=== PATIENT | female | born 1945 | race Caucasian/White ===

== ENCOUNTER 2021-02-23 10:04 | Inpatient (IN) | payer MEDICARE ==
[~2021-02-23] VITALS: Ht 162.6 cm; Wt 57.6 kg
[2021-02-23] MEDS ORDERED: FERROUS SULFAT325 MG PO (10:11)
[2021-02-23] MEDS ORDERED: LOVENOX INJ100 MG/ML SC (10:11)
[2021-02-23] MEDS ORDERED: LIPITOR40 MG PO (10:12)
[2021-02-23] MEDS ORDERED: ZOLOFT25 MG PO (10:12)
[2021-02-23] MEDS ORDERED: VALIUM 2 MG TAB2 MG PO (10:13)
[2021-02-23] MEDS ORDERED: TOPROL XL25 MG PO (10:13)
[2021-02-23] MEDS ORDERED: MELATONIN5 MG PO (10:13)
[2021-02-23] MEDS ORDERED: FEXOFENADINE HC60 MG PO (10:14)
[2021-02-23] MEDS ORDERED: CALCIUM 600 +1 EAC3 PO (10:15)
[2021-02-23] MEDS ORDERED: POTASSIUM PO (10:15)
[2021-02-23] MEDS ORDERED: FLAGYL500 MG PO (10:17)
[2021-02-23 11:11] LABS: BASOPHILS 0.1 % (0-2); EOSINOPHILS 0.1 % (0-7); IMMATURE GRANULOCYTES 0.3 % (0-5); LYMPHOCYTE ABS# 1.28 10x3/uL (1.18-3.74); LYMPHOCYTES 11.9 % (15-50); MCH 29.1 pg (26.0-34.0); MCHC 32.5 g/dL (31.0-37.0); MCV 89.5 fL (80.0-100.0); MEAN PLATELET VOLUME 9.3 fL (7.4-10.4); MONOCYTES 9.1 % (2-11); NEUTROPHIL ABS# 8.49 10x3/uL (1.56-6.13); NEUTROPHILS 78.5 % (40-80); PLATELET COUNT 216 10x3/uL (130-400); RBC 4.47 10x6/uL (4.00-5.40); RDW 14.5 % (11.5-14.5); WBC 10.8 10x3/uL (4.8-10.8)
[2021-02-23 11:17] LABS: CALCIUM 8.9 mg/dL (8.5-10.1); CARBON DIOXIDE 23.7 mmol/L (21.0-32.0); CREATININE - SERUM 0.9 mg/dL (0.6-1.3); POTASSIUM - SERUM 3.7 mmol/L (3.5-5.1)
[2021-02-23 11:23] LABS: ALBUMIN 3.3 g/dL (3.4-5.0); BILIRUBIN - TOTAL 0.53 mg/dL (0.2-1.3); PROTEIN - SERUM 6.7 g/dL (6.4-8.2)
[2021-02-23 11:30] VITALS: BP 127/64
[2021-02-23 11:37] LABS: APTT 31.2 SECONDS (22.8-39.4); INR 1.09 (0.85-1.17); PROTIME 13.1 SECONDS (11.6-15.0)
--- NOTE | 2021-02-23 11:45 | NUR ---
DR DURANT AT BS
[2021-02-23 12:16] VITALS: BP 130/58
--- NOTE | 2021-02-23 12:48 | NUR ---
AMB TO BR. 50 ML WATERY/BLOODY STOOL
--- NOTE | 2021-02-23 13:15 | NUR ---
TRIED TO CALL REPORT AT THIS TIME, PRIMARY RN ON MED SURGE IS CLEANING UP A PT AT THIS TIME AND WILL CALL BACK ORAL.
[2021-02-23 14:00] VITALS: BP 132/60
--- NOTE | 2021-02-23 14:00 | NUR ---
REPORT TO NURSE LORENZO
[2021-02-23 14:22] VITALS: BP 129/60
[2021-02-23 14:51] VITALS: BP 129/60; BMI 21.8
[2021-02-23 15:12] LABS: HEMOGLOBIN 12.2 g/dL (12-16); MCH 29.4 pg (26.0-34.0); MCV 89.2 fL (80.0-100.0); MEAN PLATELET VOLUME 9.3 fL (7.4-10.4); RBC 4.15 10x6/uL (4.00-5.40); RDW 14.4 % (11.5-14.5); WBC 9.8 10x3/uL (4.8-10.8)
[2021-02-23 18:47] LABS: HEMATOCRIT 36.1 % (36.0-48.0); HEMOGLOBIN 11.8 g/dL (12-16); MCH 29.3 pg (26.0-34.0); MCHC 32.7 g/dL (31.0-37.0); MCV 89.6 fL (80.0-100.0); MEAN PLATELET VOLUME 9.5 fL (7.4-10.4); RBC 4.03 10x6/uL (4.00-5.40); RDW 14.5 % (11.5-14.5); WBC 8.4 10x3/uL (4.8-10.8)
--- NOTE | 2021-02-23 20:00 | NUR ---
RECEIVED REPORT, WILL ASSUME CARE OF PT, DENIES ANY NEEDS AT THIS TIME, BED IS LOW, SRX2, CALL LIGHT IN REACH, WILL CONTINUE PLAN OF CARE
[2021-02-23 20:29] VITALS: BP 122/66
[2021-02-24 00:46] VITALS: BP 114/55
--- NOTE | 2021-02-24 02:11 | NUR ---
I have reviewed this patient and I concur with the Shift Assessment completed by the Licensed Practical Nurse today this shift.
[2021-02-24 05:53] VITALS: BP 120/59
[2021-02-24 05:59] LABS: BASOPHILS 0.1 % (0-2); EOSINOPHILS 1.5 % (0-7); HEMATOCRIT 35.2 % (36.0-48.0); HEMOGLOBIN 11.3 g/dL (12-16); IMMATURE GRANULOCYTES 0.1 % (0-5); LYMPHOCYTE ABS# 1.49 10x3/uL (1.18-3.74); LYMPHOCYTES 22.3 % (15-50); MCH 28.8 pg (26.0-34.0); MCHC 32.1 g/dL (31.0-37.0); MCV 89.6 fL (80.0-100.0); MEAN PLATELET VOLUME 9.8 fL (7.4-10.4); MONOCYTES 11.2 % (2-11); NEUTROPHIL ABS# 4.31 10x3/uL (1.56-6.13); NEUTROPHILS 64.8 % (40-80); PLATELET COUNT 212 10x3/uL (130-400); RBC 3.93 10x6/uL (4.00-5.40); RDW 14.6 % (11.5-14.5); WBC 6.7 10x3/uL (4.8-10.8)
[2021-02-24 06:20] LABS: ALBUMIN 2.8 g/dL (3.4-5.0); ALKALINE PHOSPHATASE 47 U/L (30-120); ALT (SGPT) 60 U/L (10-68); BILIRUBIN - TOTAL 0.33 mg/dL (0.2-1.3); CALC OSMOLALITY 286 mosm/kg (275-300); CALCIUM 8.2 mg/dL (8.5-10.1); CARBON DIOXIDE 21.9 mmol/L (21.0-32.0); CHLORIDE - SERUM 113 mmol/L (98-107); CREATININE - SERUM 0.7 mg/dL (0.6-1.3); GLUCOSE 94 mg/dL (74-106); POTASSIUM - SERUM 3.7 mmol/L (3.5-5.1); PROTEIN - SERUM 5.5 g/dL (6.4-8.2); SODIUM 145 mmol/L (136-145); UREA NITROGEN 8 mg/dL (7-18); eGFR NON AFRICAN AMERICAN 87 mL/min (90-120)
[2021-02-24 06:38] LABS: APTT 33.2 SECONDS (22.8-39.4); INR 1.16 (0.85-1.17); PROTIME 13.7 SECONDS (11.6-15.0)
--- NOTE | 2021-02-24 07:34 | NUR ---
INITIAL ROUNDS- PT RESTING COMFORTABLY IN BED. PT A/O X4, RESP EVEN AND NONLABORED ON RA. LT AC INFUSING NS AT 100CC/HR. SR-68 ON TELE. PT DENIES ANY NEEDS AT THIS TIME. CALL LIGHT IN REACH, WILL CONTINUE PLAN OF CARE.
[2021-02-24 08:20] VITALS: BP 135/68
--- NOTE | 2021-02-24 08:33 | NUR ---
WENT TO GIVE PT HER AM MEDICATIONS, AND PT STATES THAT SHE TAKES ZOLOFT AND METOPROLOL AT NIGHT, WILL HAVE IT CHANGED IN EMAR.
--- NOTE | 2021-02-24 11:46 | NUR ---
BLOOD SUGAR OF 104, NO COVERAGE NEEDED PER S/S.
[2021-02-24 12:21] VITALS: Ht 162.6 cm; Wt 57.6 kg
[2021-02-24 12:32] VITALS: BP 129/58
[2021-02-24 15:50] VITALS: BP 116/59
--- NOTE | 2021-02-24 16:55 | NUR ---
BLOOD SUGAR OF 96, NO COVERAGE NEEDED PER S/S. PT RESTING COMFORTABLY IN BED, AT BEDSIDE, NAD NOTED, CALL LIGHT IN REACH.
--- NOTE | 2021-02-24 18:58 | NUR ---
PT AWAKE ALERT LYING IN BED WATCHING TV, DENIES ANY NEEDS WILL CONTINUE TO MONITOR
[2021-02-24 20:30] VITALS: BP 115/54
[2021-02-25 01:57] VITALS: BP 132/68
[2021-02-25 06:14] VITALS: BP 149/55
--- NOTE | 2021-02-25 07:00 | NUR ---
RECEIVED REPORT. ASSUMED CARE OF PATIENT. BEDSIDE SHIFT REPORT COMPLETE. WHITE BOARD UPDATED. PATIENT AWAKE,ALERT/ORIENTED. CALL LIGHT WITHIN REACH. SCDS PATENT TO BLE. DENIES NEEDS AT THIS TIME. NO DISTRESS.
[2021-02-25 07:26] LABS: BASOPHILS 0.2 % (0-2); EOSINOPHILS 3.6 % (0-7); HEMATOCRIT 34.8 % (36.0-48.0); HEMOGLOBIN 11.2 g/dL (12-16); IMMATURE GRANULOCYTES 0.2 % (0-5); LYMPHOCYTES 20.8 % (15-50); MCH 28.8 pg (26.0-34.0); MCHC 32.2 g/dL (31.0-37.0); MCV 89.5 fL (80.0-100.0); MONOCYTES 10.9 % (2-11); NEUTROPHILS 64.3 % (40-80); PLATELET COUNT 220 10x3/uL (130-400); RBC 3.89 10x6/uL (4.00-5.40); RDW 14.4 % (11.5-14.5); WBC 5.8 10x3/uL (4.8-10.8)
[2021-02-25 07:34] LABS: ALBUMIN 2.8 g/dL (3.4-5.0); ALKALINE PHOSPHATASE 46 U/L (30-120); ALT (SGPT) 49 U/L (10-68); BILIRUBIN - TOTAL 0.22 mg/dL (0.2-1.3); CALC OSMOLALITY 284 mosm/kg (275-300); CALCIUM 8.4 mg/dL (8.5-10.1); CARBON DIOXIDE 20.5 mmol/L (21.0-32.0); CHLORIDE - SERUM 112 mmol/L (98-107); CREATININE - SERUM 0.7 mg/dL (0.6-1.3); GLUCOSE 97 mg/dL (74-106); MAGNESIUM - SERUM 1.9 mg/dL (1.8-2.4); POTASSIUM - SERUM 3.5 mmol/L (3.5-5.1); PROTEIN - SERUM 5.6 g/dL (6.4-8.2); SODIUM 144 mmol/L (136-145); UREA NITROGEN 7 mg/dL (7-18); eGFR NON AFRICAN AMERICAN 87 mL/min (90-120)
--- NOTE | 2021-02-25 08:16 | NUR ---
22 GAUGE IV PLACED TO RIGHT FOREARM X 1 STICK. GOOD BLOOD RETURN, EASY FLUSH. PATIENT TOLERATED IV PLACEMENT WELL. NO DISTRESS.
[2021-02-25 08:26] VITALS: BP 143/70
--- NOTE | 2021-02-25 11:38 | NUR ---
Patient refused FSBS at this time. no distress. complaints of slight neck pain, tylenol administered as ordered.
--- NOTE | 2021-02-25 12:23 | NUR ---
Lovenox injections initiated at this time. no distress.
[2021-02-25 13:21] VITALS: BP 151/81
--- NOTE | 2021-02-25 14:55 | NUR ---
INCENTIVE SPIROMETRY ENCOURAGED. RESTING IN BED, NO DISTRESS. CALL LIGHT WITHIN REACH. IV FLUIDS INFUSING ORDERED.
[2021-02-25 16:16] VITALS: BP 137/70
--- NOTE | 2021-02-25 16:19 | NUR ---
refused FSBS at this time. no distress.
[2021-02-25 20:00] VITALS: BP 119/66
--- NOTE | 2021-02-25 22:21 | NUR ---
INITIALROUNDS COMPLETED AT 1915 H RS. PTDENIED ANY DISCOMFORT. ASSESSMENT COMPLETED AT 2000HRS. VSS. ALERT AND OREINTED TO PERSON, PLACE AND TIME. GRACIA. IV TO R WRIST WITH NS AT 100CC/HR. IV PATENT. SR PER CM HR 72. LUNGS ESSENTIALLY CTA. GRACIA. PALPABLE PERIPHERAL PULSES. SCD'S IN USE. NO BREAKDOWN NOTED. PM MEDS GIVEN. PT CURRENTLY WATCHING TV. SR UP X1, CALL LIGHT WITHIN REACH.
--- NOTE | 2021-02-26 00:03 | NUR ---
PT RESTING WITH EYES CLOSED. RESP EVEN AND REGULAR. SR UP X1,CALL LIGHT WITHIN REACH.
--- NOTE | 2021-02-26 02:58 | NUR ---
PT RESTING WITH EYES CLOSED. RESP EVEN AND REGULAR. CALL LIGHT WITHIN REACH.
[2021-02-26 04:00] VITALS: BP 143/77
--- NOTE | 2021-02-26 04:17 | NUR ---
PT HAD BM EARLIER IN SHIFT. NO BLOOD NOTED. DENIES ANY DISOCMFORT. CALL LIGHT WITHIN REACH.
--- NOTE | 2021-02-26 06:27 | NUR ---
VSS THROUGHOUT NIGHT. PT DENIED ANY DISCOMFORT. NEEDS MET;WILL CONTINUE TO MONITOR.
--- NOTE | 2021-02-26 07:08 | NUR ---
RECEIVED REPORT. ASSUMED CARE OF PATIENT. CALL LIGHT WITHIN REACH. BEDSIDE SHIFT REPORT COMPLETE. WHITE BOARD UPDATED. PATIENT SITTING UP IN BED. DENIES NEEDS. NO DISTRESS.
[2021-02-26 07:10] LABS: BASOPHILS 0.4 % (0-2); HEMATOCRIT 35.8 % (36.0-48.0); HEMOGLOBIN 11.5 g/dL (12-16); LYMPHOCYTE ABS# 1.64 10x3/uL (1.18-3.74); LYMPHOCYTES 31.4 % (15-50); MCH 28.5 pg (26.0-34.0); MCHC 32.1 g/dL (31.0-37.0); MCV 88.8 fL (80.0-100.0); MONOCYTES 11.5 % (2-11); NEUTROPHIL ABS# 2.75 10x3/uL (1.56-6.13); NEUTROPHILS 52.7 % (40-80); PLATELET COUNT 255 10x3/uL (130-400); RBC 4.03 10x6/uL (4.00-5.40); RDW 14.3 % (11.5-14.5); WBC 5.2 10x3/uL (4.8-10.8)
[2021-02-26 07:48] LABS: ALBUMIN 2.9 g/dL (3.4-5.0); ALKALINE PHOSPHATASE 48 U/L (30-120); ALT (SGPT) 43 U/L (10-68); BILIRUBIN - TOTAL 0.17 mg/dL (0.2-1.3); CALC OSMOLALITY 280 mosm/kg (275-300); CALCIUM 8.5 mg/dL (8.5-10.1); CARBON DIOXIDE 22.3 mmol/L (21.0-32.0); CHLORIDE - SERUM 110 mmol/L (98-107); CREATININE - SERUM 0.6 mg/dL (0.6-1.3); GLUCOSE 97 mg/dL (74-106); MAGNESIUM - SERUM 1.8 mg/dL (1.8-2.4); POTASSIUM - SERUM 3.2 mmol/L (3.5-5.1); PROTEIN - SERUM 5.7 g/dL (6.4-8.2); SODIUM 142 mmol/L (136-145); UREA NITROGEN 6 mg/dL (7-18); eGFR NON AFRICAN AMERICAN > 90 mL/min (90-120)
[2021-02-26 08:14] VITALS: BP 143/72
--- NOTE | 2021-02-26 11:15 | NUR ---
PATIENT REFUSED FSBS AT THIS TIME. NO DISTRESS.
[2021-02-26] MEDS ORDERED: LOVENOX60 MG/0.6 SC (11:32)
[2021-02-26] MEDS ORDERED: FLORAJEN3 CAPS460 MG PO (11:33)
--- NOTE | 2021-02-26 12:05 | MORECARE ---
CASE MANAGEMENT DISCHARGE SUMMARY PATIENT: RAYSA CERRATO UNIT: [id number] ADM DATE: 02/23/21 AGE: 75 : 46 SEX: F ROOM/BED: D.1783 AUTHOR: JOVANNA,DOC PHYSICIAN: REFERRING PHYSICIAN: JAYLIN VILLALTA MD DATE OF SERVICE: 02/26/21 Case Management Discharge Planning Summary CT Patient Name: RAYSA CERRATO Attending MD : MAYRA VILLALTA, Medical Record: [id number] Encounter : [id number] Facility : [address] [place] [address] Medical Admission Date : 112:21 Center Discharge Date : [address] [place] [address] Date of : DC Plan ID : [id number] Age/Sex/Martia : 75/ F/M Printed on : 02/26/21 12:04 CT DCP Review Details Anticipated D/C: 02/26/2021 Expected LOS : 3 Case Status : INITIATED - Initial Reviewe: [id number] - Alicia Keene Initial Review: 02/26/2021 Planned Disposi: 01 - Home or Self Care (Routine Discharge) Final Discharge: - Final Reviewer : MARIA ELENA : Alicia Keene Final Review : DCP Focus Questions & Answers DCP Screen High Risk Factors: None Walking limitation: Patient stated self rated No walking limitation present? Age: 65 - 79 Prior living environment: Lives with others Disability ranking: Grade 1: No significant disability DCP Evaluation Patient's ability to cope with chronic illness d. No chronic illness Patient and/or caregiver agree upon recommended Yes discharge plan? Patient's current cognitive status: *Oriented to person, place, situation, time and present Patient gives permission to discuss discharge Bill Jing - spouse - [phone] plans with: (name, relationship and number) Does the patient have the ability to pay for or Yes attain post discharge needs / services? Functional screen assessment: No issues identified Physical Status: Independent with ADL's Equipment needed for post hospitalization: None Is there a likelihood that the patient will No require additional services to return to the preadmission environment? Living Arrangements: Home with Spouse/Significant Other Results of this evaluation have been discussed Spouse with: Results of this evaluation have been discussed Patient with: Patient with capacity for self-care or can be Yes cared for in same environment as prior to hospitalization? Baseline cognitive status: *Oriented to person, place, situation, time and present Physical environment modification needed / No anticipated for discharge: Preadmission facility can/cannot provide post Can - at same level of care as preadmission hospital level of care needs: Pharmacy name(s): [facility] for immediate meds Does Patient have transportation to get home and Yes to follow-up medical appointments when discharged from the hospital? Would patient like to participate in any Care Not applicable Coordination programs (if applicable): Comments: Spouse to transport home Equipment in use: CPAP Other Equipment comments: [facility] [place] ([facility]) Mental health screen: No mental health history Resources / Services in place: None DCP Re-evaluation Would patient like to participate in any Care Not applicable Coordination programs (if applicable): [facility] RAYSA CERRATO MR#: [id number] /Age/Sex/Zmqmxo54-Oyb-62 /75/F /M Attending Physician Name: PAWAN [id number] Patient Account:[id number] [facility] Page -1 of 1 All edits/amendments must be made on the electronic document DICTATION DATE: 02/26/211203 GERONTOLOGY AIDE: GUERO 02/26/211203 RPT#: [id number] DC DATE: STATUS: ADM IN [facility] [address] [place] [address] END OF REPORT
--- NOTE | 2021-02-26 12:38 | MORECARE ---
CASE MANAGEMENT DISCHARGE SUMMARY PATIENT: RAYSA CERRATO UNIT: [id number] ADM DATE: 02/23/21 AGE: 75 : 46 SEX: F ROOM/BED: D.3614 AUTHOR: JOVANNA,DOC PHYSICIAN: REFERRING PHYSICIAN: JAYLIN VILLALTA MD DATE OF SERVICE: 02/26/21 Case Management Discharge Planning Summary CT Patient Name: RAYSA CERRATO Attending MD : MAYRA VILLALTA, Medical Record: [id number] Encounter : [id number] Facility : [address] [place] [address] Medical Admission Date : 112:21 Center Discharge Date : [address] [place] [address] Date of : DC Plan ID : [id number] Age/Sex/Martia : 75/ F/M Printed on : 02/26/21 12:37 CT DCP Review Details Anticipated D/C: 02/26/2021 Expected LOS : 3 Case Status : INITIATED - Initial Reviewe: [id number] - Alicia Keene Initial Review: 02/26/2021 Planned Disposi: 01 - Home or Self Care (Routine Discharge) Final Discharge: - Final Reviewer : MARIA ELENA : Alicia Keene Final Review : Comments CT Entered Date Type Reviewer 02/26/21 12:04 CT Discharge Planning Alicia Keene Comment DC PLAN: Home with spouse ANTICIPATED DC NEEDS: No needs CM met with patient to complete initial dc planning assessment. CM educated patient on the CM role and verbal consent given by patient to complete assessment. CM verified patient's address, phone number, and emergency contact phone numbers. Patient lives at home with her spouse. At discharge patient plans to return and feels this is a safe discharge. CM discussed availability of home health, rehab services, and medical equipment. Patient denied known discharge needs at this time. Transportation provider at discharge will be her spouse. States her administers Lovenox injections to her, they are both aware it has been decreased to 50mg. States her PCP is Dr. Rasheed. She has 3 steps to enter her one level home. CM will continue to follow and will assist as needed with dc plans/needs. DCP Focus Questions & Answers DCP Screen High Risk Factors: None Walking limitation: Patient stated self rated No walking limitation present? Age: 65 - 79 Prior living environment: Lives with others Disability ranking: Grade 1: No significant disability DCP Evaluation Patient's ability to cope with chronic illness d. No chronic illness Patient and/or caregiver agree upon recommended Yes discharge plan? Patient's current cognitive status: *Oriented to person, place, situation, time and present Patient gives permission to discuss discharge Catracho larsen - [phone] plans with: (name, relationship and number) Does the patient have the ability to pay for or Yes attain post discharge needs / services? Functional screen assessment: No issues identified Physical Status: Independent with ADL's Equipment needed for post hospitalization: None Is there a likelihood that the patient will No require additional services to return to the preadmission environment? Living Arrangements: Home with Spouse/Significant Other Results of this evaluation have been discussed Spouse with: Results of this evaluation have been discussed Patient with: Patient with capacity for self-care or can be Yes cared for in same environment as prior to hospitalization? Baseline cognitive status: *Oriented to person, place, situation, time and present Physical environment modification needed / No anticipated for discharge: Preadmission facility can/cannot provide post Can - at same level of care as preadmission hospital level of care needs: Pharmacy name(s): [facility] for immediate meds Does Patient have transportation to get home and Yes to follow-up medical appointments when discharged from the hospital? Would patient like to participate in any Care Not applicable Coordination programs (if applicable): Comments: Spouse to transport home Equipment in use: CPAP Other Equipment comments: [facility] [place] ([facility] [employer]) Mental health screen: No mental health history Resources / Services in place: None DCP Re-evaluation Would patient like to participate in any Care Not applicable Coordination programs (if applicable): [facility] RAYSA CERRATO MR#: [id number] /Age/Sex/Qdqwxy16-Eph-23 //F /M Attending Physician Name: PAWAN [id number] Patient Account:[id number] [facility] Page -1 of 1 All edits/amendments must be made on the electronic document DICTATION DATE: 02/26/217 AREA PLANT MANAGER: GUERO 02/26/21 1237 RPT#: [id number] DC DATE: STATUS: ADM IN [facility] [address] [place] [address] END OF REPORT
[2021-02-26 12:58] VITALS: BP 133/77
--- NOTE | 2021-02-26 13:25 | NUR ---
DISCHARGE INSTRUCTIONS PROVIDED TO PATIENT AND FAMILY. PATIENT AND FAMIILY VERBALIZED UNDERSTANDING OF ALL INSTRUCTIONS PROVIDED. 22 GAUGE IV REMOVED FROM RIGHT FOREARM. CATHETER TIP INTACT. NO BLEEDING FROM SITE. 2X2 APPLIED AND SECURED WITH BANDAID. PARKING METER COLLECTOR REMOVED.
--- NOTE | 2021-02-26 15:56 | MORECARE ---
CASE MANAGEMENT DISCHARGE SUMMARY PATIENT: RAYSA CH UNIT: [id number] ADM DATE: 02/23/21 AGE: 75 : 46 SEX: F ROOM/BED: D.0789 AUTHOR: JOVANNA,DOC PHYSICIAN: REFERRING PHYSICIAN: JAYLIN VILLALTA MD DATE OF SERVICE: 02/26/21 Case Management Discharge Planning Summary CT Patient Name: RAYSA CH Attending MD : MAYRA VILLALTA, Medical Record: [id number] Encounter : [id number] Facility : [address] [place] [address] Medical Admission Date : 112:21 Center Discharge Date : 02/26/[address] [place] [address] Date of : DC Plan ID : [id number] Age/Sex/Martia : 75/ F/M Printed on : 02/26/21 15:55 CT DCP Review Details Anticipated D/C: 02/26/2021 Expected LOS : 3 Case Status : INITIATED - Initial Reviewe: [id number] - Alicia Keene Initial Review: 02/26/2021 Planned Disposi: 01 - Home or Self Care (Routine Discharge) Final Discharge: - Final Reviewer : [id number] : Alicia Keene Final Review : Comments CT Entered Date Type Reviewer 02/26/21 12:04 CT Discharge Planning Alicia Keene Comment DC PLAN: Home with spouse ANTICIPATED DC NEEDS: No needs CM met with patient to complete initial dc planning assessment. CM educated patient on the CM role and verbal consent given by patient to complete assessment. CM verified patient's address, phone number, and emergency contact phone numbers. Patient lives at home with her spouse. At discharge patient plans to return and feels this is a safe discharge. CM discussed availability of home health, rehab services, and medical equipment. Patient denied known discharge needs at this time. Transportation provider at discharge will be her spouse. States her administers Lovenox injections to her, they are both aware it has been decreased to 50mg. States her PCP is Dr. Rasheed. She has 3 steps to enter her one level home. CM will continue to follow and will assist as needed with dc plans/needs. DCP Focus Questions & Answers DCP Screen High Risk Factors: None Walking limitation: Patient stated self rated No walking limitation present? Age: 65 - 79 Prior living environment: Lives with others Disability ranking: Grade 1: No significant disability DCP Evaluation Patient's ability to cope with chronic illness d. No chronic illness Patient and/or caregiver agree upon recommended Yes discharge plan? Patient's current cognitive status: *Oriented to person, place, situation, time and present Patient gives permission to discuss discharge Catracho Ch - suzie - [phone] plans with: (name, relationship and number) Does the patient have the ability to pay for or Yes attain post discharge needs / services? Functional screen assessment: No issues identified Physical Status: Independent with ADL's Equipment needed for post hospitalization: None Is there a likelihood that the patient will No require additional services to return to the preadmission environment? Living Arrangements: Home with Spouse/Significant Other Results of this evaluation have been discussed Spouse with: Results of this evaluation have been discussed Patient with: Patient with capacity for self-care or can be Yes cared for in same environment as prior to hospitalization? Baseline cognitive status: *Oriented to person, place, situation, time and present Physical environment modification needed / No anticipated for discharge: Preadmission facility can/cannot provide post Can - at same level of care as preadmission hospital level of care needs: Pharmacy name(s): [facility] for immediate meds Does Patient have transportation to get home and Yes to follow-up medical appointments when discharged from the hospital? Would patient like to participate in any Care Not applicable Coordination programs (if applicable): Comments: Spouse to transport home Equipment in use: CPAP Other Equipment comments: [facility] [place] ([facility]) Mental health screen: No mental health history Resources / Services in place: None DCP Re-evaluation Would patient like to participate in any Care Not applicable Coordination programs (if applicable): [facility] RAYSA CH MR#: [id number] /Age/Sex/Ygkfyl47-Bfb-52 /75/F /M Attending Physician Name: PAWAN [id number] Patient Account:[id number] [facility] Page -1 of 1 All edits/amendments must be made on the electronic document DICTATION DATE: 02/26/211554 PROPOSAL ENGINEER: GUERO 02/26/21 155 RPT#: [id number] DC DATE:02/26/21 STATUS: DIS IN [place] [id number] [place] [address] END OF REPORT
--- NOTE | 2021-03-01 04:18 | MORECARE ---
CASE MANAGEMENT DISCHARGE SUMMARY PATIENT: RAYSA CH UNIT: [id number] ADM DATE: 02/23/21 AGE: 75 : 46 SEX: F ROOM/BED: D.9274 AUTHOR: JOVANNA,DOC PHYSICIAN: REFERRING PHYSICIAN: JAYLIN VILLALTA MD DATE OF SERVICE: 03/01/21 Case Management Discharge Planning Summary CT Patient Name: RAYSA CH Attending MD : MAYRA VILLALTA, Medical Record: [id number] Encounter : [id number] Facility : [address] [place] [address] Medical Admission Date : 112:21 Center Discharge Date : 02/26/[address] [place] [address] Date of : DC Plan ID : [id number] Age/Sex/Martia : 75/ F/M Printed on : 03/01/21 4:17 CT DCP Review Details Anticipated D/C: 02/26/2021 Expected LOS : 3 Case Status : INITIATED - Initial Reviewe: [id number] - Alicia Keene Initial Review: 02/26/2021 Planned Disposi: 01 - Home or Self Care (Routine Discharge) Final Discharge: - Final Reviewer : [id number] : Alicia Keene Final Review : Comments CT Entered Date Type Reviewer 02/26/21 12:04 CT Discharge Planning Alicia Keene Comment DC PLAN: Home with spouse ANTICIPATED DC NEEDS: No needs CM met with patient to complete initial dc planning assessment. CM educated patient on the CM role and verbal consent given by patient to complete assessment. CM verified patient's address, phone number, and emergency contact phone numbers. Patient lives at home with her spouse. At discharge patient plans to return and feels this is a safe discharge. CM discussed availability of home health, rehab services, and medical equipment. Patient denied known discharge needs at this time. Transportation provider at discharge will be her spouse. States her administers Lovenox injections to her, they are both aware it has been decreased to 50mg. States her PCP is Dr. Rasheed. She has 3 steps to enter her one level home. CM will continue to follow and will assist as needed with dc plans/needs. DCP Focus Questions & Answers DCP Screen High Risk Factors: None Walking limitation: Patient stated self rated No walking limitation present? Age: 65 - 80 Prior living environment: Lives with others Disability ranking: Grade 1: No significant disability DCP Evaluation Patient gives permission to discuss discharge [place] Ch - spouse - [phone] plans with: (name, relationship and number) Patient's current cognitive status: *Oriented to person, place, situation, time and present Patient and/or caregiver agree upon recommended Yes discharge plan? Patient's ability to cope with chronic illness d. No chronic illness Physical Status: Independent with ADL's Functional screen assessment: No issues identified Does the patient have the ability to pay for or Yes attain post discharge needs / services? Living Arrangements: Home with Spouse/Significant Other Is there a likelihood that the patient will No require additional services to return to the preadmission environment? Equipment needed for post hospitalization: None Baseline cognitive status: *Oriented to person, place, situation, time and present Patient with capacity for self-care or can be Yes cared for in same environment as prior to hospitalization? Results of this evaluation have been discussed Patient with: Results of this evaluation have been discussed Spouse with: Preadmission facility can/cannot provide post Can - at same level of care as preadmission hospital level of care needs: Physical environment modification needed / No anticipated for discharge: Pharmacy name(s): [email or web address] for immediate meds Does Patient have transportation to get home and Yes to follow-up medical appointments when discharged from the hospital? Comments: Spouse to transport home Would patient like to participate in any Care Not applicable Coordination programs (if applicable): Equipment in use: CPAP Other Equipment comments: [facility] [place] [facility] Mental health screen: No mental health history Resources / Services in place: None DCP Re-evaluation Would patient like to participate in any Care Not applicable Coordination programs (if applicable): [facility] RAYSA CH MR#: [id number] /Age/Sex/Mcmwnk62-Rxs-96 /75/F /M Attending Physician Name: PAWAN [id number] Patient Account:[id number] [facility] Page -1 of 1 All edits/amendments must be made on the electronic document DICTATION DATE: 03/01/21416 BUFFER MACHINE: GUERO 03/01/21416 RPT#: [id number] DC DATE:02/26/21 STATUS: DIS IN [place] [id number] [place] [address] END OF REPORT
== END 2021-02-26 13:45 | disposition home or self-care (01) | DRG 378 ==
LOC: D.ER 10:04 → D.M2 12:21 → D.ER 14:08 → D.M2 02-26 13:45
PROVIDERS: Emergency Medicine; ADMIT Family Medicine; ATTEND Family Medicine
DX: K92.2 Gastrointestinal hemorrhage, unspecified (principal); D62 Acute posthemorrhagic anemia; I48.91 Unspecified atrial fibrillation; Z79.01 Long term (current) use of anticoagulants; Z86.73 Personal history of transient ischemic attack (TIA), and cerebral infarction without residual deficits; Z86.010 Personal history of colon polyps

== ENCOUNTER 2021-02-28 20:33 | Inpatient (IN) | payer MEDICARE ==
[~2021-02-28] VITALS: Ht 162.6 cm; Wt 58.6 kg
--- NOTE | ~2021-02-28 | OP ---
PATIENT NAME: RAYSA CERARTO MEDICAL RECORD: [id number] :47 LOCATION:[facility].CV07 ADMISSION DATE:02/28/21 SURGEON: RONEN LOCK MD DATE OF OPERATION: 03/02/2021 PROCEDURE: Colonoscopy. PREOPERATIVE DIAGNOSIS: Lower gastrointestinal bleed. INDICATIONS: Ms. Cerrato is a pleasant female who had a colonoscopy done last week as an outpatient. At that time, she had multiple polyps removed by Dr. Christensen and a series of endoclips were placed because these were very large polyps and there were multiple polyps. The patient was restarted on her anticoagulation and had presented last weekend with bleeding. She was treated conservatively and went home. However, she re-presented to the Emergency Room with further rectal bleeding and a colonoscopy is being done today to evaluate. The colonoscope was inserted through the rectum and advanced to the cecum, identified by the ileocecal valve and the appendiceal orifice. There were multiple post-polypectomy sites visualized. At 75 cm from the rectum in the proximal ascending colon, a post-polypectomy site was visualized and one endoclip was placed. At 64 cm from the rectum, two adjacent polypectomy sites were visualized and 3 additional endoclips were placed. Of note, there was one endoclip already present from her colonoscopy last week. At 58 cm from the rectum, there was another post-polypectomy site and one endoclip was placed. At 44 cm from the rectum, there was an additional post-polypectomy site and one endoclip was placed. All of these polypectomy sites were ulcerated with mild surrounding erythema. It was unclear which one had bled so empiric treatment with endoclip placement was performed, especially since the patient will likely need to resume her anticoagulation. Upon examining the rectum, there was a large 1 cm post-polypectomy site with significant erythema, edema, and stigmata of hemorrhage. Most likely this was the definitive source of her ongoing hematochezia and bright red blood. This large post-polypectomy site was washed carefully and 2 endoclips were placed successfully. There was no bleeding visualized and the patient tolerated the procedure well. There were also a few scattered sigmoid diverticula and a few other small polyps that were not removed during previous colonoscopy likely secondary to the larger polyps and need for multiple polypectomy removal. FINAL DIAGNOSES: Multiple post-polypectomy ulcerated lesions. Multiple additional endoclips placed. Next, distal rectal large post-polypectomy site with very significant stigmata of recent hemorrhage. Two endoclips placed successfully. The patient tolerated the procedure well. I did talk in lengthy detail. PLAN: Continue supportive treatment. I will start full liquids on this patient. I did also consult Cardiology for assistance with management of her anticoagulation given her ongoing post-polypectomy bleeding after anticoagulation had been started. Continue to monitor H and H. Also, I had a lengthy discussion with her regarding her fragile situation. However, at this time, she is stable and hopefully given the multiple additional endoclips placed as well as the 2 endoclips placed at the large rectal post-polypectomy site with stigmata of hemorrhage. Hopefully, she will stop bleeding at this time. Again, this is situation to be carefully balanced given her need for anticoagulation. More recommendations to follow. We will continue to watch her closely. OPERATIVE REPORT [id number] RAYSA CERRATO TRANSINT:[id number] Voice Confirmation ID: [id number] DOCUMENT ID: [id number] RONEN LOCK MD CC: [id number] DICTATION DATE: 03/02/21 1310 BUSINESS ACCOUNT MANAGER: 03/02/[address] [facility] [address] [place] [id number]
--- NOTE | ~2021-02-28 | CN ---
PATIENT NAME:RAYSA CERRATO MEDICAL RECORD: [id number] : 47 LOCATION:[facility] ADMIT DATE: 02/28/21 ACCOUNT: [id number] CONSULTING PHYSICIAN: ROSHAN PARTIDA MD REFERRING PHYSICIAN: BA GODOY MD DATE OF CONSULTATION: 03/02/2021 HISTORY OF PRESENT ILLNESS: A 75-year-old female with cardiovascular history. Has a history of atrial fibrillation, status post CVA with really minimal residual. She was initially admitted previous admission with GI bleed. She had a colonoscopy 02/23, switched to Lovenox preprocedure, with multiple polypectomies. She has had recurrent GI bleeding. We are asked to assist in anticoagulation management. PAST MEDICAL HISTORY: Includes; 1. History of cerebrovascular disease status post CVA. 2. Hypertension. 3. Hyperlipidemia. ALLERGIES: SULFA, MEFOXIN, ZETIA. MEDICATIONS: Include Estella 180 mg p.o. daily, Lovenox pre- and post-procedure, iron supplementation, atorvastatin 40 mg p.o. daily, cholestyramine 4 grams b.i.d., metoprolol 25 daily, aspirin 81 daily, Zoloft 25 daily. SOCIAL HISTORY: Nonsmoker, nondrinker. Easily takes care of all her ADLs. Does try to walk on a regular basis. REVIEW OF SYSTEMS: The patient reports easy bruising but reports no swollen glands. The patient reports no fever, no night sweats, no significant weight gain, no significant weight loss. No significant exercise tolerance. The patient reports no dry eyes, no irritation, no vision change. Patient reports no difficulty hearing and no ear pain. Patient reports no frequent nose bleeds or nose and sinus problems. Patient reports on arm pain on exertion. No shortness of breath while lying down. No history of heart murmur. Patient reports no cough, no wheezing or coughing up blood. Patient reports no abdominal pain, no vomiting. Normal appetite. No diarrhea and not vomiting blood. No nausea and no constipation. Patient reports no incontinence. No difficulty urinating. No hematuria. No increased frequency. Patient reports no muscle aches. No weakness, no arthralgias, no back pain. No swelling of the extremities. Patient reports no abnormal mole, no jaundice, no rashes. Reports no loss of consciousness. No weakness and no numbness. No seizures, dizziness, or headaches. The patient reports no depression, no sleep disturbance, feeling safe in a relationship and no alcohol abuse. Patient reports on fatigue. Reports no runny nose or sinus pressure. No itching, no hives, and no frequent sneezing. PHYSICAL EXAMINATION: GENERAL: Pleasant. No acute distress, appears stated age. VITAL SIGNS: 149/74, pulse 70 and regular. HEENT: Normocephalic, atraumatic. NECK: No bruits are noted. HEART: Regular, II/ systolic ejection murmur. LUNGS: Fairly good air excursion. CONSULT REPORT [id number] ROUGH,RAYSA ABDOMEN: Soft and nontender. EXTREMITIES: Pulses 2+. No edema. NEUROLOGIC: Grossly intact. DIAGNOSTIC STUDIES: EKG currently shows normal sinus rhythm. IMPRESSION: At this point in time, given recurrent bleeding and the fact the patient is in normal sinus rhythm, would hold the Xarelto for 2 weeks. Okay to restart at that point. Risks, benefits favor holding Xarelto quickly with recurrent bleeding and the patient remaining in sinus rhythm, although CHADS score is elevated. I think this can safely be held as described above. TRANSINT:[id number] Voice Confirmation ID: [id number] DOCUMENT ID: [id number] ROSHAN PARTIDA MD CC: [id number] DICTATION DATE: 03/02/21 162 ALLIED HEALTH TEACHER: 03/03/21 0114 DIS IN 03/03/21 [facility] [address] [place] [address]
[~2021-02-28 20:33] MED LIST: CALCIUM 600 +1 EAC3 PO; FERROUS SULFAT325 MG PO; FEXOFENADINE HC60 MG PO; FLAGYL500 MG PO; FLORAJEN3 CAPS460 MG PO; LIPITOR40 MG PO; LOVENOX INJ100 MG/ML SC; LOVENOX60 MG/0.6 SC; MELATONIN5 MG PO; POTASSIUM PO; TOPROL XL25 MG PO; VALIUM 2 MG TAB2 MG PO; ZOLOFT25 MG PO
[2021-02-28 21:01] VITALS: BP 109/55
[2021-02-28 21:02] LABS: CALC OSMOLALITY 283 mosm/kg (275-300); CALCIUM 8.6 mg/dL (8.5-10.1); CARBON DIOXIDE 19.7 mmol/L (21.0-32.0); CHLORIDE - SERUM 109 mmol/L (98-107); CREATININE - SERUM 0.9 mg/dL (0.6-1.3); POTASSIUM - SERUM 3.2 mmol/L (3.5-5.1); SODIUM 141 mmol/L (136-145); UREA NITROGEN 12 mg/dL (7-18); eGFR NON AFRICAN AMERICAN 65 mL/min (90-120)
[2021-02-28 21:05] LABS: BASOPHILS 0.5 % (0-2); EOSINOPHILS 1.3 % (0-7); HEMATOCRIT 33.1 % (36.0-48.0); HEMOGLOBIN 10.5 g/dL (12-16); IMMATURE GRANULOCYTES 0.4 % (0-5); LYMPHOCYTES 49.5 % (15-50); MCH 28.8 pg (26.0-34.0); MCHC 31.7 g/dL (31.0-37.0); MCV 90.9 fL (80.0-100.0); MEAN PLATELET VOLUME 10.3 fL (7.4-10.4); MONOCYTES 9.8 % (2-11); NEUTROPHIL ABS# 2.96 10x3/uL (1.56-6.13); NEUTROPHILS 38.5 % (40-80); PLATELET COUNT 291 10x3/uL (130-400); RBC 3.64 10x6/uL (4.00-5.40); RDW 14.5 % (11.5-14.5); WBC 7.7 10x3/uL (4.8-10.8)
[2021-02-28 21:10] LABS: GLUCOSE 153 mg/dL (74-106)
[2021-02-28 21:19] LABS: ALBUMIN 2.7 g/dL (3.4-5.0); ALKALINE PHOSPHATASE 41 U/L (30-120); ALT (SGPT) 27 U/L (10-68); BILIRUBIN - TOTAL 0.19 mg/dL (0.2-1.3); CKMB 0.2 U/L (0.0-3.6); CREATINE KINASE 41 UL (21-215); MAGNESIUM - SERUM 1.8 mg/dL (1.8-2.4); PROTEIN - SERUM 5.7 g/dL (6.4-8.2)
[2021-02-28 21:56] VITALS: BP 109/52
[2021-02-28 22:01] LABS: PROTIME 13.5 SECONDS (11.6-15.0)
[2021-02-28 22:02] LABS: APTT 24.7 SECONDS (22.8-39.4); INR 1.13 (0.85-1.17)
--- NOTE | 2021-02-28 22:40 | NUR ---
NO FURTHER BLEEDING NOTED SINCE ARRIVAL TO ER
[2021-02-28 23:35] VITALS: BP 100/54; BMI 21.9
[2021-03-01] VITALS (24 sets, daily range): BP systolic 100–144; BP diastolic 38–74
[2021-03-01] MEDS ORDERED: PREVALITE POWD231 GM PO (01:18)
[2021-03-01] MEDS ORDERED: BAYER CHEWABLE81 MG PO (01:44)
[2021-03-01 01:45] LABS: HEMATOCRIT 29.8 % (36.0-48.0); HEMOGLOBIN 9.5 g/dL (12-16)
[2021-03-01 04:24] LABS: BASOPHILS 0.2 % (0-2); EOSINOPHILS 0.1 % (0-7); HEMOGLOBIN 9.4 g/dL (12-16); IMMATURE GRANULOCYTES 0.4 % (0-5); LYMPHOCYTE ABS# 1.78 10x3/uL (1.18-3.74); LYMPHOCYTES 21.8 % (15-50); MCH 28.4 pg (26.0-34.0); MCHC 31.3 g/dL (31.0-37.0); MCV 90.6 fL (80.0-100.0); MEAN PLATELET VOLUME 9.9 fL (7.4-10.4); NEUTROPHIL ABS# 5.77 10x3/uL (1.56-6.13); NEUTROPHILS 70.5 % (40-80); PLATELET COUNT 269 10x3/uL (130-400); RBC 3.31 10x6/uL (4.00-5.40); RDW 14.7 % (11.5-14.5); WBC 8.2 10x3/uL (4.8-10.8)
[2021-03-01 05:21] LABS: ALBUMIN 2.6 g/dL (3.4-5.0); ANION GAP 13.8 mmol/L (8-16); BILIRUBIN - TOTAL 0.25 mg/dL (0.2-1.3); CALCIUM 8.2 mg/dL (8.5-10.1); CARBON DIOXIDE 21.7 mmol/L (21.0-32.0); CREATININE - SERUM 0.8 mg/dL (0.6-1.3); PHOSPHOROUS 4.1 mg/dL (2.5-4.9); PROTEIN - SERUM 5.4 g/dL (6.4-8.2)
[2021-03-01 05:31] LABS: POTASSIUM - SERUM 4.5 mmol/L (3.5-5.1)
--- NOTE | 2021-03-01 06:34 | NUR ---
Shift summary: Patient had bloody BM x 2. Denies abdmonial pain or nausea. Environment assessed for safety, call light and personal items within reach. Plan of care discussed.
--- NOTE | 2021-03-01 08:50 | NUR ---
BED MURILLO PROVIDED. BLOODY LIQUID STOOL NOTED. STOOL WAS MAROON IN COLOR. PT DENIES HAVING ANY PAIN AT THIS TIME. TOLERATING CLEAR LIQUIDS. WILL CONTINUE TO MONITOR.
[2021-03-01 11:45] LABS: HEMATOCRIT 31.1 % (36.0-48.0); HEMOGLOBIN 9.7 g/dL (12-16)
--- NOTE | 2021-03-01 12:57 | NUR ---
ASSISTED UP TO BEDSIDE COMMODE. MAROON STOOL MIXED WITH URINE NOTED. ABOUT 600ML OUTPUT.
--- NOTE | 2021-03-01 15:40 | NUR ---
ASSISTED OFF BEDSIDE COMMODE. VOIDED ABOUT 400ML OF URINE MIXED WITH MAROON BLOOD NOTED. SPOUSE AT BEDSIDE. WILL CONTINUE TO MONITOR.
[2021-03-01 17:38] LABS: HEMATOCRIT 28.5 % (36.0-48.0); HEMOGLOBIN 9.1 g/dL (12-16)
[2021-03-01 17:57] LABS: ALBUMIN 2.7 g/dL (3.4-5.0); ALKALINE PHOSPHATASE 39 U/L (30-120); ALT (SGPT) 26 U/L (10-68); BILIRUBIN - TOTAL 0.24 mg/dL (0.2-1.3); CALCIUM 8.1 mg/dL (8.5-10.1); CARBON DIOXIDE 23.4 mmol/L (21.0-32.0); CHLORIDE - SERUM 110 mmol/L (98-107); CREATININE - SERUM 0.7 mg/dL (0.6-1.3); GLUCOSE 100 mg/dL (74-106); PROTEIN - SERUM 5.5 g/dL (6.4-8.2); SODIUM 142 mmol/L (136-145); eGFR NON AFRICAN AMERICAN 87 mL/min (90-120)
[2021-03-01 17:59] LABS: CALC OSMOLALITY 280 mosm/kg (275-300); POTASSIUM - SERUM 3.4 mmol/L (3.5-5.1); UREA NITROGEN 7 mg/dL (7-18)
--- NOTE | 2021-03-01 20:17 | NUR ---
PT RESTING IN BED, NSR PER CHEMIST ENZYMES, VITALS WNL, ON ROOM AIR. 20G TO RIGHT WRIST WITH NS INFUSING @100ML/HR, APPOX 500ML OF BOWEL PREP REMAINING FOR PT TO CONSUME BEFORE MIDNIGHT. PT UNDERSTANDS NO EATING OR DRINKING AFTER MIDNIGHT. UP TO BEDSIDE COMMODE WITH STANDBY ASSIST, CLEAR TO YELLOW STOOL AND ENTIRELY LIQUID IN APPEARANCE. PT WITH STEADY GAIT TO TRANSFER FROM BED TO BSC, AGREES TO USE CALL LIGHT TO ALLOW NURSING STAFF TO ASSIST TO BSC TO PREVENT FALL. DENIES COMPLAINTS OR UNMET NEEDS AT THIS TIME. CALL LIGHT WITHIN REACH.
[2021-03-01 23:37] LABS: HEMATOCRIT 27.2 % (36.0-48.0); HEMOGLOBIN 8.6 g/dL (12-16)
[2021-03-02] VITALS (23 sets, daily range): BP systolic 101–149; BP diastolic 46–74; Ht 162.6 cm; Wt 58.6 kg
--- NOTE | 2021-03-02 01:12 | NUR ---
PT COMPLETED BOWEL PREP BEFORE MIDNIGHT. HAS HAD 4 LIQUID STOOLS THUS FAR DURING SHIFT, CLEAR WITH YELLOW COLOR, DENIES COMPLAINTS OR ABDOMINAL PAIN, NO N/V, NO BLOOD NOTED IN STOOL. BED LOW AND LOCKED, BED ALARM ACTIVATED, CALL LIGHT WITHIN REACH.
[2021-03-02 05:02] LABS: HEMOGLOBIN 8.7 g/dL (12-16)
[2021-03-02 07:16] LABS: CALC OSMOLALITY 278 mosm/kg (275-300); CHLORIDE - SERUM 110 mmol/L (98-107); CREATININE - SERUM 0.6 mg/dL (0.6-1.3); GLUCOSE 86 mg/dL (74-106); POTASSIUM - SERUM 3.6 mmol/L (3.5-5.1); SODIUM 142 mmol/L (136-145); eGFR NON AFRICAN AMERICAN > 90 mL/min (90-120)
[2021-03-02 07:17] LABS: UREA NITROGEN 4 mg/dL (7-18)
--- NOTE | 2021-03-02 12:58 | NUR ---
COLONOSCOPY DONE IN ROOM BY DR LOCK. [address] LOCK SPOKE TO PTS POST PROCEDURE. DR MUNROE CONSULTED. PAGED AND REC'D RETURN CALL. REPORTED CONSULT TO DR MUNROE AND REASON FOR CONSULT.
--- NOTE | 2021-03-02 19:35 | NUR ---
REPORT REC'D AND CARE ASSUMED, REC'D PT RESTING IN BED ON ROOM AIR, AWAKE, ALERT, AND ORIENTED X 4, RIGHT FOREARM PIV WITH NS @ 100CC/HR, PT MAEE, SCDS TO LOWER EXT'S INTACT AND ON, PPP, SLIPPER SOCKS IN USE, PT DENIES PAIN OR OTHER NEEDS, BED IN LOW POSITION, CALL LIGHT IN REACH.
[2021-03-03] VITALS (13 sets, daily range): BP systolic 108–153; BP diastolic 51–69
--- NOTE | 2021-03-03 07:34 | NUR ---
AWAKE AND ALERT SKIN WARM AND DRY. DENIES PAIN. ABD SOFT NO TENDERNESS ON PALPATATION. NO DISTRESS.
[2021-03-03 09:18] LABS: BASOPHILS 0.3 % (0-2); EOSINOPHILS 1.8 % (0-7); HEMATOCRIT 29.3 % (36.0-48.0); HEMOGLOBIN 9.3 g/dL (12-16); IMMATURE GRANULOCYTES 0.3 % (0-5); LYMPHOCYTE ABS# 1.49 10x3/uL (1.18-3.74); LYMPHOCYTES 22.7 % (15-50); MCH 28.7 pg (26.0-34.0); MCHC 31.7 g/dL (31.0-37.0); MCV 90.4 fL (80.0-100.0); MEAN PLATELET VOLUME 9.6 fL (7.4-10.4); MONOCYTES 10.2 % (2-11); NEUTROPHIL ABS# 4.25 10x3/uL (1.56-6.13); NEUTROPHILS 64.7 % (40-80); PLATELET COUNT 263 10x3/uL (130-400); RBC 3.24 10x6/uL (4.00-5.40); RDW 14.5 % (11.5-14.5); WBC 6.6 10x3/uL (4.8-10.8)
[2021-03-03 09:37] LABS: ALBUMIN 2.8 g/dL (3.4-5.0); BILIRUBIN - TOTAL 0.14 mg/dL (0.2-1.3); CALCIUM 8.6 mg/dL (8.5-10.1); CARBON DIOXIDE 24.6 mmol/L (21.0-32.0); PROTEIN - SERUM 5.8 g/dL (6.4-8.2)
[2021-03-03 09:39] LABS: CREATININE - SERUM 0.8 mg/dL (0.6-1.3)
[2021-03-03 09:49] LABS: ANION GAP 12.2 mmol/L (8-16); POTASSIUM - SERUM 2.8 mmol/L (3.5-5.1)
--- NOTE | 2021-03-03 10:05 | NUR ---
UP TO BSC WITH MINIMAL LINE ASSISTANCES. TOLERATES WELL. AT BEDSIDE. TALKED WITH DR GODOY. QUESTIONS ANSWERED. NO DISTRESS.
--- NOTE | 2021-03-03 10:56 | NUR ---
DR. DURANT HERE STATES PATIENT CAN BE DISCHARGED HOME. STATES OK TO GIVEN 40 MEQ KCL PO AND SEND PATIENT HOME. PATIENT STATES SHE HAS CHRONIC LOW POTASSIUM AND TAKES POTASSIUM AT HOME. PATIENT ALREADY HAS A PRESCRIPTION FOR FLAGYL AT HOME. SHE IS TO CONTINUE THIS PRESCRIPTION AND BOTH VERBALIZED THIS. PATIET IS TO FOLLOW UP WITH DR. JAMA. DR. ALFONSO BRUMFIELD NOTIFIED OF DR. DURANT ORDERS. IV DC'D.
--- NOTE | 2021-03-04 15:09 | MORECARE ---
CASE MANAGEMENT DISCHARGE SUMMARY PATIENT: RAYSA CERRATO UNIT: [id number] ADM DATE: 02/28/21 AGE: 75 : 46 SEX: F ROOM/BED: [facility] AUTHOR: JOVANNA,DOC PHYSICIAN: REFERRING PHYSICIAN: BA GODOY MD DATE OF SERVICE: 03/04/21 Case Management Discharge Planning Summary CT Patient Name: RAYSA CERRATO Attending MD : BA DOE Medical Record: [id number] Encounter : [id number] Facility : [address] [place] [address] Admission Date : 122:07 Center Discharge Date : 03/03/[address] [place] [address] Date of : DC Plan ID : [id number] Age/Sex/Martia : 75/ F/M Printed on : 03/04/21 15:07 CT DCP Review Details Anticipated D/C: Expected LOS : Case Status : INITIATED - Initial Reviewe: MAT Shaver Initial Review: 02/28/2021 Planned Disposi: 01 - Home or Self Care (Routine Discharge) Final Discharge: 01 - Home or Self Care (Routine Discharge) Final Reviewer : MAT : Sherron Shaver Final Review : 03/03/2021 DCP Focus Questions & Answers [facility] RAYSA CERRATO MR#: [id number] /Age/Sex/Xanfcb19-Dke-66 /75/F /M Attending Physician Name: BA GODOY [id number] Patient Account:[id number] [facility] Page -1 of 1 All edits/amendments must be made on the electronic document DICTATION DATE: 03/04/21 1507 HEALTH RESEARCHER: DM 03/04/21 1507 RPT#: [id number] DC DATE:03/03/21 STATUS: DIS IN [address] [address] END OF REPORT
--- NOTE | 2021-03-04 16:10 | MORECARE ---
CASE MANAGEMENT DISCHARGE SUMMARY PATIENT: RAYSA CERRATO UNIT: [id number] ADM DATE: 02/28/21 AGE: 75 : 46 SEX: F ROOM/BED: [facility] AUTHOR: JOVANNA,DOC PHYSICIAN: REFERRING PHYSICIAN: BA GODOY MD DATE OF SERVICE: 03/04/21 Case Management Discharge Planning Summary CT Patient Name: RAYSA CERRATO Attending MD : BA DOE Medical Record: [id number] Encounter : [id number] Facility : [address] [place] [address] Admission Date : 122:07 Center Discharge Date : 03/03/[address] [place] [address] Date of : DC Plan ID : [id number] Age/Sex/Martia : 75/ F/M Printed on : 03/04/21 16:09 CT DCP Review Details Anticipated D/C: Expected LOS : Case Status : INITIATED - Initial Reviewe: [id number] Shaver Initial Review: 02/28/2021 Planned Disposi: 01 - Home or Self Care (Routine Discharge) Final Discharge: 01 - Home or Self Care (Routine Discharge) Final Reviewer : MAT : Sherron Shaver Final Review : 03/03/2021 DCP Focus Questions & Answers DCP Screen High Risk Factors: Readmission within past 30 days DCP Evaluation Patient's ability to cope with chronic illness d. No chronic illness Would patient like to participate in any Care Not applicable Coordination programs (if applicable): Mental health screen: No mental health history DCP Re-evaluation Would patient like to participate in any Care Not applicable Coordination programs (if applicable): [facility] RAYSA CERRATO MR#: [id number] /Age/Sex/Bpbdpt67-Yrc-82 //F /M Attending Physician Name: BA GODOY [id number] Patient Account:[id number] [facility] Page -1 of 1 All edits/amendments must be made on the electronic document DICTATION DATE: 03/04/211608 COMBER TENDER: GUERO 03/04/21 160 RPT#: [id number] DC DATE:03/03/21 STATUS: DIS IN [facility] [address] [facility] [place] [address] END OF REPORT
--- NOTE | 2021-03-04 16:58 | MORECARE ---
CASE MANAGEMENT DISCHARGE SUMMARY PATIENT: RAYSA CERRATO UNIT: [id number] ADM DATE: 02/28/21 AGE: 75 : 46 SEX: F ROOM/BED: [facility] AUTHOR: JOVANNA,DOC PHYSICIAN: REFERRING PHYSICIAN: BA GODOY MD DATE OF SERVICE: 03/04/21 Case Management Discharge Planning Summary CT Patient Name: RAYSA CERRATO Attending MD : BA DOE Medical Record: [id number] Encounter : [id number] Facility : [address] [place] [address] Admission Date : 122:07 Center Discharge Date : 03/03/[address] [place] [address] Date of : DC Plan ID : [id number] Age/Sex/Martia : 75/ F/M Printed on : 03/04/21 16:57 CT DCP Review Details Anticipated D/C: Expected LOS : Case Status : INITIATED - Initial Reviewe: [id number] - Sherron Shaver Initial Review: 02/28/2021 Planned Disposi: 01 - Home or Self Care (Routine Discharge) Final Discharge: 01 - Home or Self Care (Routine Discharge) Final Reviewer : [id number] : Sherron Shaver Final Review : 03/03/[address] Entered Date Type Reviewer 03/04/21 16:53 CT Discharge Planning Sherron Shaver Comment LATE ENTRY 03/03/21 CM spoke with patient to complete initial dc planning assessment. CM educated patient on the CM role and verbal consent given by patient to complete assessment. Patient lives at home with family. Patient is independent. At discharge patient plans to return home and feels this is a safe discharge. CM discussed availability of home health, rehab services, and medical equipment. Patient will have family to transport home. Patient denied known discharge needs at this time. CM will continue to follow and will assist as needed with dc plans/needs. D/C IMM SIGNED DCP Focus Questions & Answers DCP Screen High Risk Factors: Readmission within past 30 days DCP Evaluation Patient's ability to cope with chronic illness d. No chronic illness Patient and/or caregiver agree upon recommended Yes discharge plan? Patient's current cognitive status: *Oriented to person, place, situation, time and present Patient gives permission to discuss discharge BILL BLOSSOM SPOUSE [phone] plans with: (name, relationship and number) Does the patient have the ability to pay for or Yes attain post discharge needs / services? Functional screen assessment: Basic needs can adequately be met by self Family / Caregiver's ability to cope with chronic a. Adequate (ability to meet patient's illness: medical needs, ensures patient attends medical appts.) Physical Status: Independent with ADL's Is there a likelihood that the patient will No require additional services to return to the preadmission environment? Living Arrangements: Home with Spouse/Significant Other Patient with capacity for self-care or can be Yes cared for in same environment as prior to hospitalization? Baseline cognitive status: *Oriented to person, place, situation, time and present Physical environment modification needed / No anticipated for discharge: Preadmission facility can/cannot provide post Can - at same level of care as preadmission hospital level of care needs: Planned post hospital services available for No patient? Pharmacy name(s): [facility] Planned post hospital services covered by No insurance plan? Does Patient have transportation to get home and Yes to follow-up medical appointments when discharged from the hospital? Would patient like to participate in any Care Not applicable Coordination programs (if applicable): Does the patient have electricity at home? Yes Does the patient have running water in their Yes house? Equipment in use: CPAP Mental health screen: No mental health history DCP Re-evaluation Would patient like to participate in any Care Not applicable Coordination programs (if applicable): [facility] RAYSA CERRATO MR#: [id number] /Age/Sex/Dfrezs85-Yga-28 //F /M Attending Physician Name: BA GODOY [id number] Patient Account:[id number] [facility] Page -1 of 1 All edits/amendments must be made on the electronic document DICTATION DATE: 03/04/211656 LANDSCAPE FOREMAN: GUERO 03/04/211656 RPT#: [id number] DC DATE:03/03/21 STATUS: DIS IN [facility] [address] [place] [address] END OF REPORT
== END 2021-03-03 12:10 | disposition home or self-care (01) | DRG 378 ==
LOC: D.ER 20:33 → D.CVICU 22:07
PROVIDERS: Family Medicine; Internal Medicine Gastroenterology; ADMIT Emergency Medicine; ATTEND Emergency Medicine
PROC: 0W3P8ZZ Control Bleeding in Gastrointestinal Tract, Via Natural or Artificial Opening Endoscopic (ICD-10-PCS; principal; 2021-03-02 11:30)
DX: K92.2 Gastrointestinal hemorrhage, unspecified (principal); D62 Acute posthemorrhagic anemia; E87.6 Hypokalemia; I48.91 Unspecified atrial fibrillation; Z86.010 Personal history of colon polyps; Z86.73 Personal history of transient ischemic attack (TIA), and cerebral infarction without residual deficits; Z79.01 Long term (current) use of anticoagulants; I10 Essential (primary) hypertension; E78.5 Hyperlipidemia, unspecified